=== PATIENT | male | born 1965 | race Caucasian/White ===

== ENCOUNTER 2021-01-28 16:59 | Inpatient (IN) | payer MEDICARE, OTHER ==
[~2021-01-28] VITALS: Ht 175.3 cm; Wt 126.2 kg
[2021-01-28 17:42] LABS: HEMOGLOBIN 12.7 gm/dl (14.0-17.5); RED BLOOD COUNT 4.02 M/UL (4.20-5.50); WHITE BLOOD COUNT 8.4 K/UL (4.5-11.0)
[2021-01-28 18:04] LABS: BUN/CREATININE RATIO 7 (0-10)
[2021-01-29] MEDS ORDERED: PEPCID40 MG PO (08:18)
[2021-01-29] MEDS ORDERED: LEVOTHYROXINE100 MC2 PO (12:41)
[2021-01-29] MEDS ORDERED: FLUOXETINE HCL40 MG PO (12:41)
[2021-01-29] MEDS ORDERED: METHADONE HCL10 MG PO (12:44)
[2021-01-30 04:55] LABS: HEMOGLOBIN 11.7 gm/dl (14.0-17.5); RED BLOOD COUNT 3.74 M/UL (4.20-5.50); WHITE BLOOD COUNT 10.1 K/UL (4.5-11.0)
[2021-01-30 05:32] LABS: BUN/CREATININE RATIO 10 (0-10)
[2021-01-31 07:35] LABS: HEMOGLOBIN 11.8 gm/dl (14.0-17.5); RED BLOOD COUNT 3.75 M/UL (4.20-5.50); WHITE BLOOD COUNT 9.5 K/UL (4.5-11.0)
[2021-01-31 08:26] LABS: BUN/CREATININE RATIO 11 (0-10)
[2021-02-01 05:30] LABS: HEMOGLOBIN 11.5 gm/dl (14.0-17.5); RED BLOOD COUNT 3.7 M/UL (4.20-5.50); WHITE BLOOD COUNT 7.5 K/UL (4.5-11.0)
[2021-02-01 06:12] LABS: BUN/CREATININE RATIO 13 (0-10)
[2021-02-01] MEDS ORDERED: IPRAT-ALBUT 0.5-3 ML NEB (12:12)
[2021-02-01] MEDS ORDERED: MEDROL DOSEPAK 24 MG PO (12:12)
[2021-02-01] MEDS ORDERED: AMLODIPINE BESYL5 MG PO (12:12)
[2021-02-01] MEDS ORDERED: LEVOTHYROXINE100 MC2 PO (12:12)
[2021-02-01] MEDS ORDERED: PULMICORT0.5 MG/2 M INH (13:24)
[2021-02-01] MEDS ORDERED: DOXYCYCLINE HY100 M2 PO (13:24)
[2021-02-01] MEDS ORDERED: OMNICEF 300 MG300 MG PO (13:24)
[2021-02-03 13:14] LABS: D001-IGE D PTERONYSSINUS 1.22 kU/L (Class II); D002-IGE D FARINAE 0.95 kU/L (Class II); E005-IGE DOG DANDER 0.22 kU/L (Class 0/I); G002-IGE BERMUDA GRASS 0.13 kU/L (Class 0/I); G006-IGE TIMOTHY GRASS 0.43 kU/L (Class I); M001-IGE PENICILLIUM CHRYSOGEN <0.10 kU/L (Class 0); M002-IGE CLADOSPORIUM HERBARUM 0.11 kU/L (Class 0/I); M003-IGE ASPERGILLUS FUMIGATUS <0.10 kU/L (Class 0); M006-IGE ALTERNARIA ALTERNATA <0.10 kU/L (Class 0); T001-IGE MAPLE/BOX ELDER 0.11 kU/L (Class 0/I); T003-IGE COMMON SILVER BIRCH <0.10 kU/L (Class 0); T007-IGE OAK, WHITE <0.10 kU/L (Class 0); T010-IGE WALNUT 0.14 kU/L (Class 0/I); T011-IGE MAPLE LEAF SYCAMORE 0.34 kU/L (Class I); T014-IGE COTTONWOOD 0.14 kU/L (Class 0/I); T015-IGE ASH, WHITE 0.18 kU/L (Class 0/I); T070-IGE WHITE MULBERRY <0.10 kU/L (Class 0); W001-IGE RAGWEED, SHORT 0.25 kU/L (Class 0/I); W018-IGE SHEEP SORREL 0.13 kU/L (Class 0/I)
== END 2021-02-01 17:00 | disposition home health service (06) | DRG 189 ==
LOC: ER1 16:59 → PROG CARE 20:19 → M/S 20:19 → CDU 20:19 → PROG CARE 01-29 03:37 → M/S 01-30 14:41
PROVIDERS: Emergency Medicine; Internal Medicine; Nurse Practitioner Family; ADMIT Internal Medicine
PROC: B24BZZ4 Ultrasonography of Heart with Aorta, Transesophageal (ICD-10-PCS; principal; 2021-01-31)
DX: J96.01 Acute respiratory failure with hypoxia (principal); J45.901 Unspecified asthma with (acute) exacerbation; E66.2 Morbid (severe) obesity with alveolar hypoventilation; F11.20 Opioid dependence, uncomplicated; M62.82 Rhabdomyolysis; E87.2 Acidosis; Z68.41 Body mass index [BMI] 40.0-44.9, adult; Z20.822 Contact with and (suspected) exposure to COVID-19; J96.02 Acute respiratory failure with hypercapnia; G47.33 Obstructive sleep apnea (adult) (pediatric); J44.9 Chronic obstructive pulmonary disease, unspecified; K76.0 Fatty (change of) liver, not elsewhere classified; I10 Essential (primary) hypertension; G89.4 Chronic pain syndrome; F17.210 Nicotine dependence, cigarettes, uncomplicated; I34.0 Nonrheumatic mitral (valve) insufficiency; E03.9 Hypothyroidism, unspecified; Z91.14 Patient's other noncompliance with medication regimen; Z83.3 Family history of diabetes mellitus
CPT/HCPCS: ECHO; 36415; 36600; 71045; 80048; 80053; 80307; 81001; 82550; 82553; 82607; 82746; 82785; 82803; 83036; 83605; 83690; 83874; 83880; 84439; 84443; 84484; 85025; 85027; 85652; 86140; 87070; 87086; 87205; 93306; 94640; 94664; 94760; 96374; 96375; 99285; J0696; J1650; J2920; J2930; Q9967; U0002

== ENCOUNTER → 2021-04-19 | Outpatient (CLI) | payer MEDICARE ==
[~2021-04-19] MED LIST: AMLODIPINE BESYL5 MG PO; DOXYCYCLINE HY100 M2 PO; FLUOXETINE HCL40 MG PO; IPRAT-ALBUT 0.5-3 ML NEB; LEVOTHYROXINE100 MC2 PO; MEDROL DOSEPAK 24 MG PO; METHADONE HCL10 MG PO; OMNICEF 300 MG300 MG PO; PEPCID40 MG PO; PULMICORT0.5 MG/2 M INH
== END ==
LOC: HEART 5 10:02
DX: J44.9 Chronic obstructive pulmonary disease, unspecified (principal); R94.2 Abnormal results of pulmonary function studies
CPT/HCPCS: 94060; 94729

== ENCOUNTER → 2021-07-23 | Outpatient (CLI) | payer MEDICARE | LOC: US 13:30 | DX: E03.9 Hypothyroidism, unspecified (principal) | CPT/HCPCS: 76536 ==

== ENCOUNTER → 2021-09-01 | Outpatient (CLI) | payer MEDICARE | LOC: LAB 15:45 → RT 15:45 | DX: J44.9 Chronic obstructive pulmonary disease, unspecified (principal) | CPT/HCPCS: 36600; 82803 ==

== ENCOUNTER → 2021-09-08 | Outpatient (CLI) | payer MEDICARE | LOC: SLEEP 14:19 | DX: G47.33 Obstructive sleep apnea (adult) (pediatric) (principal) | CPT/HCPCS: 95810 ==